=== PATIENT | male | born 1980 | race Caucasian/White ===

== ENCOUNTER 2021-12-01 10:39 | Outpatient (CLI) | payer OTHER ==
--- NOTE | 2021-12-01 11:49 | XRay Report ---
CHEST 2 VIEWS INDICATION / CLINICAL INFORMATION: TO RULE OUT ACTIVE TB. COMPARISON: None available. FINDINGS: SUPPORT DEVICES: None. HEART / MEDIASTINUM: No significant abnormality. LUNGS / PLEURA: No significant pulmonary or pleural abnormality. No pneumothorax. ADDITIONAL FINDINGS: No significant additional findings. IMPRESSION: 1. No acute findings. No evidence of pulmonary tuberculosis. Signer Name: Devyn Funez MD Signed: 12/01/2021 11:45 AM Workstation Name: [id number]
== END 2021-12-01 10:40 | disposition home or self-care (01) ==
LOC: XRAY 10:39
PROVIDERS: ATTEND Family Medicine
DX: A15.8 Other respiratory tuberculosis (principal)
CPT/HCPCS: 71046